=== PATIENT | female | born 1995 | race Caucasian/White ===

== ENCOUNTER 2019-08-16 03:15 | Emergency (ER) | payer MEDICAID ==
[2019-08-16] MEDS ORDERED: Sodium Chloride 0.9% 1000 ML 1,000 ML IV STA ×2 (03:39→05:25)
[2019-08-16] MEDS ORDERED: Zofran 4 MG/2 ML VIAL IV ONE (03:52)
[2019-08-16] MEDS ORDERED: Zofran 4 MG/2 ML VIAL ONE (03:57)
[2019-08-16] MEDS ORDERED: Sodium Chloride 0.9% 1000 ML 1,000 ML ONE ×2 (03:57→05:30)
--- NOTE | 2019-08-16 04:00 | ERPHSYRPT ---
- History of Present Illness Time Seen by Provider: 08/16/19 03:55 Historian: patient Exam Limitations: no limitations Patient Subjective Stated Complaint: pt to ER with complaints of vomting x 3 hours. pt is 12 weeks . Triage Nursing Assessment: pt to ER with complaints of vomiting x 3 hours. pt states she is aprox 12 weeks . Physician History: pt has been vomiting, no bleeding or discharge but pain is severe; no trauma pt may be 12 weeks and had positive test with PCP. suprapubic tenderness Timing/Duration: today Activities at Onset: none Quality: sharpness, stabbing Abdominal Pain Onset Location: suprapubic Pain Radiation: epigastric, back Severity of Pain-Max: moderate Severity of Pain-Current: moderate Modifying Factors: Improves With: nothing Associated Symptoms: back, nausea, vomiting Previous symptoms: no prior history Allergies/Adverse Reactions: No Known Drug Allergies Allergy (Unverified 08/16/19 03:33) Hx Tetanus, Diphtheria Vaccination/Date Given: Yes Hx Influenza Vaccination/Date Given: No Hx Pneumococcal Vaccination/Date Given: No Immunizations Up to Date: Yes - Review of Systems Constitutional: No Fever, No Chills Eyes: No Symptoms Ears, Nose, & Throat: No Symptoms Respiratory: No Cough, No Dyspnea Cardiac: No Chest Pain, No Edema, No Syncope Abdominal/Gastrointestinal: Abdominal Pain, Nausea, Vomiting, No Diarrhea Genitourinary Symptoms: No Dysuria Musculoskeletal: Back Pain, No Neck Pain Skin: No Rash Neurological: No Dizziness, No Focal Weakness, No Sensory Changes Psychological: No Symptoms Endocrine: No Symptoms All Other Systems: Reviewed and Negative - Past Medical History Pertinent Past Medical History: No - Past Surgical History Past Surgical History: Yes Gastrointestinal: Cholecystectomy - Social History Smoking Status: Light tobacco smoker Exposure to second hand smoke: Yes Drug Use: none Patient Lives Alone: No - Female History Hx Now: Yes Gestational Age: 12 weeks - Nursing Vital Signs Nursing Vital Signs: Initial Vital Signs Pulse Rate 138 H 08/16/19 03:25 Respiratory Rate 24 08/16/19 03:25 Blood Pressure 135/93 08/16/19 03:25 O2 Sat by Pulse Oximetry 97 08/16/19 03:25 - Physical Exam General Appearance: no apparent distress, alert Eye Exam: PERRL/EOMI, eyes nml inspection Ears, Nose, Throat Exam: normal ENT inspection, pharynx normal, moist mucous membranes Neck Exam: normal inspection, non-tender, supple, full range of motion Respiratory Exam: normal breath sounds, lungs clear, No respiratory distress Cardiovascular Exam: regular rate/rhythm, normal heart sounds Gastrointestinal/Abdomen Exam: soft, tenderness (suprpubic), No mass Back Exam: normal inspection, normal range of motion, No CVA tenderness, No vertebral tenderness Extremity Exam: normal inspection, normal range of motion, pelvis stable Neurologic Exam: alert, oriented x 3, cooperative, normal mood/affect, nml cerebellar function, sensation nml, No motor deficits Skin Exam: normal color, warm, dry SpO2 Interpretation: normal SpO2: 97 O2 Delivery: Room Air - Course Nursing assessment & vital signs reviewed: Yes - Radiology Ultrasound Exam OB Ultrasound: IUP Renal Ultrasound: Other (no pyelo or obstruction noted on US - discussed with tech) Ordered Tests: Active Orders 24 hr Category Date Time Status IV Insertion STAT Care 08/16/19 03:39 Active NPO (ED) STAT Care 08/16/19 03:39 Active KIDNEY [US] Stat Exams 08/16/19 05:23 Ordered OB <14 WKS 1ST GESTATION [US] Stat Exams 08/16/19 03:40 Taken AMYLASE Stat Lab 08/16/19 04:00 Completed CBC W DIFF Stat Lab 08/16/19 04:00 Completed CMP Stat Lab 08/16/19 04:00 Completed CULTURE,URINE Stat Lab 08/16/19 04:45 Received HCG, Quantitative (Inhouse) Stat Lab 08/16/19 04:00 Completed LIPASE Stat Lab 08/16/19 04:00 Completed Lactic Acid Stat Lab 08/16/19 04:50 Completed UA W/RFX UR CULTURE Stat Lab 08/16/19 04:45 Completed Medication Summary Generic Name Dose Route Start Last Admin Trade Name Freq PRN Reason Stop Dose Admin Ceftriaxone Sodium/Dextrose 1 g in 50 mls @ 100 mls/hr 08/16/19 05:16 Rocephin 1 Gm-D5w 50 Ml Bag IV 08/16/19 05:45 STAT STA Sodium Chloride 1,000 mls @ 999 mls/hr 08/16/19 05:25 Sodium Chloride 0.9% 1000 Ml IV 08/16/19 06:25 .Q1H1M STA Discontinued Medications Generic Name Dose Route Start Last Admin Trade Name Freq PRN Reason Stop Dose Admin Sodium Chloride 1,000 mls @ 999 mls/hr 08/16/19 03:39 08/16/19 03:59 Sodium Chloride 0.9% 1000 Ml IV 08/16/19 04:39 999 mls/hr .Q1H1M STA Administration Sodium Chloride Confirm 08/16/19 03:57 Sodium Chloride 0.9% 1000 Ml Administered 08/16/19 03:58 Dose 1,000 mls @ ud .ROUTE .STK-MED ONE Ondansetron HCl 4 mg 08/16/19 03:52 08/16/19 03:58 Zofran 4 Mg/2 Ml Vial IV 08/16/19 03:53 4 mg STAT ONE Administration Ondansetron HCl Confirm 08/16/19 03:57 Zofran 4 Mg/2 Ml Vial Administered 08/16/19 03:58 Dose 4 mg .ROUTE .STK-MED ONE Lab/Rad Data: Laboratory Result Diagrams 08/16/19 04:00 08/16/19 04:00 Laboratory Results 08/16/19 08/16/19 08/16/19 Range/Units 04:50 04:45 04:00 WBC (4.0-10.5) K/mm3 RBC (4.1-5.4) M/mm3 Hgb (12.0-16.0) gm/dl Hct (35-47) % MCV (78-100) fl MCH (26-32) pg MCHC (32-36) g/dl RDW (11.5-14.0) % Plt Count (150-450) K/mm3 MPV (6-9.5) fl Gran % (36.0-66.0) % Eos # (Auto) (0-0.5) Absolute Lymphs (auto) (1.0-4.6) Absolute Monos (auto) (0.0-1.3) Lymphocytes % (24.0-44.0) % Monocytes % (0.0-12.0) % Eosinophils % (0.00-5.0) % Basophils % (0.0-0.4) % Absolute Granulocytes (1.4-6.9) Basophils # (0-0.4) Sodium 139 (137-145) mmol/L Potassium 3.8 (3.5-5.1) mmol/L Chloride 107 (98-107) mmol/L Carbon Dioxide 22 (22-30) mmol/L Anion Gap 14.8 (5-15) MEQ/L BUN 8 (7-17) mg/dL Creatinine 0.38 L (0.52-1.04) mg/dL Estimated GFR > 60.0 ML/MIN Glucose 94 (74-106) mg/dL Lactic Acid 0.9 (0.4-2.0) Calcium 9.5 (8.4-10.2) mg/dL Total Bilirubin 0.40 (0.2-1.3) mg/dL AST 14 (14-36) U/L ALT 11 (0-35) U/L Alkaline Phosphatase 46 (38-126) U/L Serum Total Protein 8.3 H (6.3-8.2) g/dL Albumin 4.4 (3.5-5.0) g/dL Amylase 63 (30-110) U/L Lipase 43 (23-300) U/L Beta HCG, Quant 60623 mIU/ml Urine Color DARK YELLOW (YELLOW) Urine Appearance SLIGHTLY CLOUDY (CLEAR) Urine pH 5.0 (5-6) Ur Specific [place] 1.028 (1.005-1.025) Urine Protein NEGATIVE (Negative) Urine Ketones NEGATIVE (NEGATIVE) Urine Blood NEGATIVE (0-5) Aveyr/ul Urine Nitrite NEGATIVE (NEGATIVE) Urine Bilirubin NEGATIVE (NEGATIVE) Urine Urobilinogen NEGATIVE (0-1) mg/dL Ur Leukocyte Esterase LARGE (NEGATIVE) Urine WBC (Auto) 16-25 (0-5) /HPF Urine RBC (Auto) 3-5 (0-2) /HPF U Epithel Cells (Auto) MODERATE (FEW) /HPF Urine Bacteria (Auto) FEW (NEGATIVE) /HPF Urine Mucus (Auto) SLIGHT (NEGATIVE) /HPF Urine Culture Reflexed YES (NO) Urine Glucose NEGATIVE (NEGATIVE) mg/dL 08/16/19 Range/Units 04:00 WBC 19.5 H (4.0-10.5) K/mm3 RBC 4.52 (4.1-5.4) M/mm3 Hgb 13.3 (12.0-16.0) gm/dl Hct 38.8 (35-47) % MCV 85.8 (78-100) fl MCH 29.4 (26-32) pg MCHC 34.3 (32-36) g/dl RDW 13.7 (11.5-14.0) % Plt Count 443 (150-450) K/mm3 MPV 10.3 H (6-9.5) fl Gran % 81.1 H (36.0-66.0) % Eos # (Auto) 0.18 (0-0.5) Absolute Lymphs (auto) 2.18 (1.0-4.6) Absolute Monos (auto) 1.26 (0.0-1.3) Lymphocytes % 11.2 L (24.0-44.0) % Monocytes % 6.5 (0.0-12.0) % Eosinophils % 0.9 (0.00-5.0) % Basophils % 0.3 (0.0-0.4) % Absolute Granulocytes 15.78 H (1.4-6.9) Basophils # 0.05 (0-0.4) Sodium (137-145) mmol/L Potassium (3.5-5.1) mmol/L Chloride (98-107) mmol/L Carbon Dioxide (22-30) mmol/L Anion Gap (5-15) MEQ/L BUN (7-17) mg/dL Creatinine (0.52-1.04) mg/dL Estimated GFR ML/MIN Glucose (74-106) mg/dL Lactic Acid (0.4-2.0) Calcium (8.4-10.2) mg/dL Total Bilirubin (0.2-1.3) mg/dL AST (14-36) U/L ALT (0-35) U/L Alkaline Phosphatase (38-126) U/L Serum Total Protein (6.3-8.2) g/dL Albumin (3.5-5.0) g/dL Amylase (30-110) U/L Lipase (23-300) U/L Beta HCG, Quant mIU/ml Urine Color (YELLOW) Urine Appearance (CLEAR) Urine pH (5-6) Ur Specific [place] (1.005-1.025) Urine Protein (Negative) Urine Ketones (NEGATIVE) Urine Blood (0-5) Avery/ul Urine Nitrite (NEGATIVE) Urine Bilirubin (NEGATIVE) Urine Urobilinogen (0-1) mg/dL Ur Leukocyte Esterase (NEGATIVE) Urine WBC (Auto) (0-5) /HPF Urine RBC (Auto) (0-2) /HPF U Epithel Cells (Auto) (FEW) /HPF Urine Bacteria (Auto) (NEGATIVE) /HPF Urine Mucus (Auto) (NEGATIVE) /HPF Urine Culture Reflexed (NO) Urine Glucose (NEGATIVE) mg/dL - Progress Progress: improved, re-examined Counseled pt/family regarding: lab results, diagnosis, need for follow-up, rad results - Departure Departure Disposition: Home Clinical Impression: emesis gravidarum, UTI (urinary tract infection), Intrauterine Condition: Good Critical Care Time: No Referrals: DOCTOR,NO FAMILY [Primary Care Provider] - Instructions: Urinary Tract Infection, Adult (DC), Urinary Tract Infections in , Hyperemesis Gravidarum Additional Instructions: you have a urinary infection and an elevated blood count which needs followup to recheck with your dr this week, since the infection could get worse; return meantime if not improving or other concerns Prescriptions: Cephalexin Mh 500 mg [Keflex 500 mg] 500 mg PO TID #30 capsule Doxylamine Succinate/Vit B6 [Zack Claire 10-10 mg Tablet] 1 each PO DAILY #20 tablet.
[2019-08-16 04:19] LABS: Absolute Neutrophil Ct (ANC) 15.78 (1.4-6.9); BASOPHIL % 0.3 % (0.0-0.4); Basophil (Absolute #) 0.05 (0-0.4); Eosinophil % 0.9 % (0.00-5.0); Eosinophil (Absolute #) 0.18 (0-0.5); Hematocrit 38.8 % (35-47); Hemoglobin 13.3 gm/dl (12.0-16.0); Lymphocyte (Absolute #) 2.18 (1.0-4.6); Lymphocytes % 11.2 % (24.0-44.0); Mean Cell Volume 85.8 fl (78-100); Mean Corpuscular Hemoglobin 29.4 pg (26-32); Mean Corpuscular Hgb Concent. 34.3 g/dl (32-36); Mean Platelet Volume 10.3 fl (6-9.5); Monocyte (Absolute #) 1.26 (0.0-1.3); Monocytes % 6.5 % (0.0-12.0); Neutrophil % 81.1 % (36.0-66.0); Platelet Count 443 K/mm3 (150-450); Red Blood Count 4.52 M/mm3 (4.1-5.4); Red Cell Distribution Width 13.7 % (11.5-14.0); White Blood Count 19.5 K/mm3 (4.0-10.5)
[2019-08-16 04:42] LABS: ALBUMIN 4.4 g/dL (3.5-5.0); ALKALINE PHOSPHATASE 46 U/L (38-126); AMYLASE 63 U/L (30-110); ANION GAP 14.8 MEQ/L (5-15); BLOOD UREA NITROGEN 8 mg/dL (7-17); CHLORIDE 107 mmol/L (98-107); Calcium 9.5 mg/dL (8.4-10.2); Carbon Dioxide 22 mmol/L (22-30); Creatinine 1 0.38 mg/dL (0.52-1.04); Glucose 94 mg/dL (74-106); LIPASE 43 U/L (23-300); Potassium 3.8 mmol/L (3.5-5.1); SGOT/AST 14 U/L (14-36); SGPT/ALT 11 U/L (0-35); SODIUM 139 mmol/L (137-145); Total Protein 8.3 g/dL (6.3-8.2)
[2019-08-16 05:02] LABS: Appearance SLIGHTLY CLOUDY (CLEAR); Bacteria FEW /HPF (NEGATIVE); Bilirubin NEGATIVE (NEGATIVE); Blood NEGATIVE Ery/ul (0-5); Epithelial Cells MODERATE /HPF (FEW); Glucose NEGATIVE (NEGATIVE); Ketones NEGATIVE (NEGATIVE); Leukocyte Esterase LARGE (NEGATIVE); Mucus SLIGHT /HPF (NEGATIVE); Nitrite NEGATIVE (NEGATIVE); Protein,Urine Dip NEGATIVE (Negative); Specific Gravity 1.028 (1.005-1.025); Urobilinogen NEGATIVE mg/dL (0-1)
[2019-08-16 05:07] LABS: HCG, Quantitative (Inhouse) 93230 mIU/ml
[2019-08-16] MEDS ORDERED: ROCEPHIN 1 Gm-D5w 50 ml Bag** 1 G/50 ML IVPB IV STA (05:16)
[2019-08-16] MEDS ORDERED: ROCEPHIN 1 Gm-D5w 50 ml Bag** 1 G/50 ML IVPB IV ONE (05:30)
[2019-08-16] MEDS ORDERED: Phenergan 25 MG INJ IM ONE (07:21)
[2019-08-16] MEDS ORDERED: Phenergan 25 MG INJ ONE (07:26)
[2019-08-16 07:31] VITALS: BP 118/60; PULSE 88; O2SAT 98
--- NOTE | 2019-08-16 10:34 | XRAY ---
Indication: UTI. 2-dimensional renal sonogram performed. Comparison: None Both kidneys normal in reniform shape. Right kidney measures 10.7 x 4.8 x 4.3 cm and the left measures 11.9 x 4.5 x 4.5 cm. No solid/cystic renal mass or hydronephrosis. Cortical medullary differentiation preserved. Images of the minimally distended urinary bladder grossly unremarkable. Normal left ureteral jet. Right ureteral jet not seen within the allotted exam time. Impression: Negative renal sonogram. Comment: Preliminary report was given.
--- NOTE | 2019-08-16 10:36 | XRAY ---
Indication: Ectopic . Two-dimensional transabdominal early OB ultrasound performed. Comparison: None There is a single viable intrauterine with mean crown-rump length 6.19 cm corresponding to 12 weeks 4 days. heart rate 157 BPM. No abnormal subchorionic fluid. Right ovary sonographically unremarkable. Left ovary not seen. No suspicious adnexal mass or free fluid. Impression: Single viable intrauterine measuring 12 weeks 4 days. Expected date confinement is February 25, 2020. Comment: Preliminary report was given.
== END 2019-08-16 07:43 | disposition home or self-care (01) ==
LOC: ED 03:15
DX: O21.0 Mild hyperemesis gravidarum (principal); O23.41 Unspecified infection of urinary tract in pregnancy, first trimester; Z3A.12 12 weeks gestation of pregnancy
CPT/HCPCS: 36000; 36415; 76770; 76801; 80053; 81001; 82150; 83605; 83690; 84702; 85025; 87086; 96360; 96365; 96372; 96374; 96375; 99284; J0696; J2405; J2550